=== PATIENT | female | born 1960 | race Hispanic/Latino ===

== ENCOUNTER 2022-08-20 17:02 | Emergency (ER) | payer OTHER, SELFPAY ==
[2022-08-20] MEDS ORDERED: Fluorescein Opthalmic Strip ONE (17:14)
[2022-08-20] MEDS ORDERED: Tetracaine 0.5% PF 4 ML BOT ONE (17:14)
== END 2022-08-20 17:40 | disposition home or self-care (01) ==
LOC: NAV ERS 17:02
DX: S05.02XA Injury of conjunctiva and corneal abrasion without foreign body, left eye, initial encounter (principal); I16.0 Hypertensive urgency; I10 Essential (primary) hypertension; Z79.899 Other long term (current) drug therapy; W22.8XXA Striking against or struck by other objects, initial encounter
CPT/HCPCS: 99283